=== PATIENT | male | born 1955 | race Caucasian/White ===

== ENCOUNTER 2016-08-08 06:44 | Day surgery (SDC) | payer OTHER ==
[~2016-08-08 06:44] MED LIST: Buffered Lidocaine 0.9% SYRIN* 5 ML/SYR SYRINGE INTRADERM ONE
[2016-08-08] MEDS ORDERED: Midazolam* 1 MG/ML 2 ML VIAL (2 MG) ONE ×2 (08:16→08:32)
[2016-08-08 09:19] VITALS: BP 122/79
--- NOTE | 2016-08-08 09:45 | OP ---
DATE OF OPERATION: 08/08/2016 - [facility] DATE OF : 1955. SURGEON: Matias Scanlon M.D. PREOPERATIVE DIAGNOSIS: Cataract left eye. POSTOPERATIVE DIAGNOSIS: Cataract left eye. OPERATIVE PROCEDURE: Phacoemulsification left eye with IOL. DESCRIPTION OF PROCEDURE: The patient was brought to the operating room after being given 1/2% Alcaine with epinephrine drops in the preoperative area. The eye was prepped and draped in the usual sterile fashion. Sterile drape and eyelid speculum were placed. Again, topical 1/2% Alcaine with epinephrine was given. A paracentesis incision was made at the 3 o'clock position with the No.75 blade. Clear cornea incision 2.2 x 2.2-mm was created at the 6 o'clock position starting at the anterior limbus using the 2.2-mm keratome. The anterior chamber was irrigated with 0.4 mL of 1% non-preservative intracameral lidocaine and filled with DisCoVisc. A capsulorrhexis was completed using the cystotome and the Utrata forceps. Hydrodissection was performed with balanced salt solution. The lens nucleus was removed with the Phacoemulsification handpiece without incident. Cortex was removed with the irrigation-aspiration handpiece. The capsular bag was re-inflated using DisCoVisc and an [id number] implant was inserted with the shooter. The irrigation-aspiration handpiece was used to remove all residual DisCoVisc. The eye was refilled with balanced salt solution and the wound checked and found to be watertight. Topical Maxitrol drops were given. [id number]/[facility] #: [id number] [facility]
[2016-08-08] MEDS ORDERED: Lidocaine 1% MPF* 2 ML VIAL ONE (13:52)
[2016-08-08] MEDS ORDERED: Buffered Lidocaine 0.9% SYRIN* 5 ML/SYR SYRINGE ONE (13:52)
[2016-08-08] MEDS ORDERED: Cyclopentolate 1% OPTH.SOL* 2 ML BTL ONE (13:52)
[2016-08-08] MEDS ORDERED: Povidone Iodine 5% OPTH* 30 ML BTL ONE (13:52)
[2016-08-08] MEDS ORDERED: Neomycin/Polymy/Dex OPTH.SUSP* MAXITROL 0.1% 5 ML ONE (13:52)
[2016-08-08] MEDS ORDERED: Proparacaine 0.5% OPHTH.SOL* 15 ML BTL ONE (13:52)
[2016-08-08] MEDS ORDERED: acetaZOLAMIDE TAB* 250 MG ONE (13:52)
[2016-08-08] MEDS ORDERED: Phenylephrine 2.5% OPTH.SOL* 2 ML BTL ONE (13:52)
[2016-08-08] MEDS ORDERED: Lidocaine 1% MPF wEPI 200,000* 30 ML SDV ONE (13:52)
[2016-08-08] MEDS ORDERED: Flurbiprofen 0.03% OPTH.SOL* 2.5 ML BTL ONE (13:52)
== END 2016-08-08 09:12 | disposition home or self-care (01) ==
LOC: OREAST 06:44
PROVIDERS: ATTEND Specialist
DX: H25.812 Combined forms of age-related cataract, left eye (principal); I10 Essential (primary) hypertension; E78.00 Pure hypercholesterolemia, unspecified
CPT/HCPCS: A9270-GY; J2001; J2250; V2788

== ENCOUNTER 2016-08-15 09:49 | Day surgery (SDC) | payer OTHER ==
[~2016-08-15 09:49] MED LIST changes: +Acetaminophen TAB* 325 MG PO PRN
[2016-08-15] MEDS ORDERED: Midazolam* 1 MG/ML 2 ML VIAL (2 MG) ONE (12:50)
[2016-08-15] MEDS ORDERED: fentaNYL* 50 MCG/ML 2 ML VIAL (100 MCG VIAL) ONE (12:50)
[2016-08-15 13:37] VITALS: BP 122/77
[2016-08-15] MEDS ORDERED: Flurbiprofen 0.03% OPTH.SOL* 2.5 ML BTL ONE (13:57)
[2016-08-15] MEDS ORDERED: Lidocaine 1% MPF* 2 ML VIAL ONE (13:57)
[2016-08-15] MEDS ORDERED: Neomycin/Polymy/Dex OPTH.SUSP* MAXITROL 0.1% 5 ML ONE (13:57)
[2016-08-15] MEDS ORDERED: Cyclopentolate 1% OPTH.SOL* 2 ML BTL ONE (13:57)
[2016-08-15] MEDS ORDERED: Proparacaine 0.5% OPHTH.SOL* 15 ML BTL ONE (13:57)
[2016-08-15] MEDS ORDERED: acetaZOLAMIDE TAB* 250 MG ONE (13:57)
[2016-08-15] MEDS ORDERED: Povidone Iodine 5% OPTH* 30 ML BTL ONE (13:57)
[2016-08-15] MEDS ORDERED: Buffered Lidocaine 0.9% SYRIN* 5 ML/SYR SYRINGE ONE (13:57)
[2016-08-15] MEDS ORDERED: Lidocaine 1% MPF wEPI 200,000* 30 ML SDV ONE (13:57)
[2016-08-15] MEDS ORDERED: Phenylephrine 2.5% OPTH.SOL* 2 ML BTL ONE (13:57)
--- NOTE | 2016-08-16 08:57 | OP ---
DATE OF OPERATION: 08/15/16 - [facility] DATE OF : [birth year] SURGEON: Matias Scanlon M.D. PREOPERATIVE DIAGNOSIS: Cataract, right eye. POSTOPERATIVE DIAGNOSIS: Cataract, right eye. OPERATIVE PROCEDURE: Phacoemulsification right eye with IOL. DESCRIPTION OF PROCEDURE: The patient was brought to the operating room after being given 1/2% Alcaine with epinephrine drops in the preoperative area. The eye was prepped and draped in the usual sterile fashion. Sterile drape and eyelid speculum were placed. Again, topical 1/2% Alcaine with epinephrine was given. A paracentesis incision was made at the 9 o'clock position with the No.75 blade. Clear cornea incision 2.2 x 2.2-mm was created at the 12 o'clock position starting at the anterior limbus using the 2.2-mm keratome. The anterior chamber was irrigated with 0.4 mL of 1% non-preservative intracameral lidocaine and filled with DisCoVisc. A capsulorrhexis was completed using the cystotome and the Utrata forceps. Hydrodissection was performed with balanced salt solution. The lens nucleus was removed with the Phacoemulsification handpiece without incident. Cortex was removed with the irrigation-aspiration handpiece. The capsular bag was re-inflated using DisCoVisc and an [id number] implant was inserted with the shooter. Of note, at the beginning of surgery, I noticed 2'o clock areas of zonules were missing inferiorly. The surgery went smoothly without incident and the lens was well positioned at the end of the surgery. at 2 o'clock was a problem and necessitated a capsular retention ring. The irrigation-aspiration handpiece was used to remove all residual DisCoVisc. The eye was refilled with balanced salt solution and the wound checked and found to be watertight. Topical Maxitrol drops were given. [id number]/[facility] #: [id number] [facility]
== END 2016-08-15 13:46 | disposition home or self-care (01) ==
LOC: OREAST 09:49
PROVIDERS: ATTEND Specialist
DX: H25.811 Combined forms of age-related cataract, right eye (principal); I10 Essential (primary) hypertension; E78.5 Hyperlipidemia, unspecified
CPT/HCPCS: A9270-GY; J2001; J2250; J3010; V2788

== ENCOUNTER 2017-03-19 06:13 | Observation (INO) | payer OTHER ==
[~2017-03-19 06:13] MED LIST changes: -Acetaminophen TAB* 325 MG PO PRN; +Dexamethasone IV* 4 MG/ML 1 ML (4 MG) IV SLOW PU ONE; +Famotidine IV* 10 MG/ML 2 ML (20 mg) IV ONE
[2017-03-19] MEDS ORDERED: Dexamethasone IV* 4 MG/ML 1 ML (4 MG) ONE (06:49)
[2017-03-19] MEDS ORDERED: Famotidine IV* 10 MG/ML 2 ML (20 mg) ONE (06:49)
[2017-03-19] MEDS ORDERED: Lidocaine 1% MPF wEPI 200,000* 30 ML SDV ONE (07:21)
[2017-03-19] MEDS ORDERED: Thrombin 5,000 UNITS* 1 APPLIC KIT - topical use - TOPICAL ONE (07:22)
[2017-03-19] MEDS ORDERED: Bacitracin IV* 50,000 UNITS INJ ONE (07:22)
[2017-03-19] MEDS ORDERED: Mivacurium Chloride* 20 MG/10 ML VIAL IV ONE (07:34)
[2017-03-19] MEDS ORDERED: Propofol* 10 MG/ML 20 ML BTL IV PUSH ONE ×2 (07:34→08:57)
[2017-03-19] MEDS ORDERED: Midazolam* 1 MG/ML 2 ML VIAL (2 MG) ONE (07:35)
[2017-03-19] MEDS ORDERED: Lidocaine 2% PF * 5 ML VIAL ONE (07:35)
[2017-03-19] MEDS ORDERED: fentaNYL* 50 MCG/ML 5 ML VIAL (250 MCG VIAL) ONE (07:38)
[2017-03-19] MEDS ORDERED: EPHEDrine (Pressors)* 50 MG/ML VIAL ONE (08:12)
[2017-03-19] MEDS ORDERED: Phenylephrine INJ* 10 MG/ML 1 ML VIAL (10 MG) ONE (08:15)
[2017-03-19] MEDS ORDERED: HYDROcodone/ACETAMIN 5-325 MG* 1 TAB PO PRN (08:36)
[2017-03-19] MEDS ORDERED: oxyCODONE/Acetamin 5/325 MG* TAB PO PRN (08:36)
[2017-03-19] MEDS ORDERED: fentaNYL* 50 MCG/ML 2 ML VIAL (100 MCG VIAL) IV PRN (08:36)
[2017-03-19] MEDS ORDERED: Naloxone* 0.4 MG/ML 1 ML VIAL IV PRN (08:36)
[2017-03-19] MEDS ORDERED: PROCHLORPERAZINE INJ 5 MG/ML 2 ML VIAL IV PRN (08:36)
[2017-03-19] MEDS ORDERED: Ondansetron INJ* 2 MG/ML VIAL ONE (08:47)
[2017-03-19] MEDS ORDERED: Magnesium Hydroxide LIQ* 30 ML UDC PO PRN (09:09)
[2017-03-19] MEDS ORDERED: Ondansetron INJ* 2 MG/ML VIAL IV PRN (09:09)
[2017-03-19] MEDS ORDERED: oxyCODONE/Acetamin 5/325 MG* TAB ONE (09:45)
--- NOTE | 2017-03-19 11:34 | RAD ---
INDICATION: Intraoperative radiograph during posterior cervical discectomy at C7-T1 COMPARISON: None. TECHNIQUE: A single lateral crosstable image was obtained. FINDINGS: Only the cervical spine from C1 to the upper abdomen C4 is clearly visible. The cervical spine is obscured from the mid-level C4 level downward. There is a surgical instrument pointing approximately at the C5 level although this area the cervical spine is not directly visible. IMPRESSION: The cervical spine is not visible from the superior endplate of C4 downward. A surgical instrument is pointing approximately at the C4/C5 level, but this is an estimation.
[2017-03-19] MEDS: HYDROcodone/ACETAMIN 5-325 MG* 1 TAB PO PRN ×2 (13:31→20:51)
[2017-03-19] MEDS ORDERED: Zolpidem TAB* 10 MG PO PRN (21:00)
[2017-03-20 07:44] VITALS: BP 138/68
--- NOTE | 2017-03-22 22:29 | DS ---
DISCHARGE SUMMARY: DATE OF ADMISSION: 03/19/17 DATE OF DISCHARGE: 03/20/17 ATTENDING PHYSICIAN: Dr. Nolasco.* (DICTATED BY JULIET DURANT) DISCHARGE DIAGNOSIS: Cervical disk disease. SPECIAL PROCEDURES: Posterior cervical foraminotomy, C7-T1 on the left. HOSPITAL COURSE: This 61-year-old male was seen in the office with cervical radiculopathy that had failed to improve with multiple conservative treatments. Proposed posterior cervical surgery was discussed with the patient and he decided to proceed with this option. On the day of admission, he was taken to surgery where under general anesthesia, a posterior cervical foraminotomy at C7- T1 on the left operation was carried out. Postoperatively, he was feeling well and preoperative symptoms were improved. He was ambulating independently. He was eating, drinking, and voiding without difficulty. On the first postoperative day, the wound drain was discontinued and the patient was discharged home to the care of his family. Pain was well-controlled at this time with oral pain medications. DISCHARGE INSTRUCTIONS: Wound care and activity level were discussed with the patient and provided. FOLLOW UP: In office in 2 weeks. DISCHARGE MEDICATIONS: None. JULIET DURANT [id number]/[facility] #: [id number] [facility]
--- NOTE | 2017-03-28 13:07 | OP ---
OPERATIVE REPORT: DATE OF OPERATION: 03/19/17 DATE OF : 53 SURGEON: Diego Nolasco MD ANESTHESIA: General. PRE-OP DIAGNOSIS: Herniated nucleus pulposus, C7-T1 on the left. POST-OP DIAGNOSIS: Cervical spondylosis C7-T1 on the left. OPERATIVE PROCEDURE: Posterior cervical partial hemilaminectomy C7-T1 on the left with foraminotomy C7-T1 on left with microdissection. DESCRIPTION OF PROCEDURE: After satisfactory general anesthesia was obtained, the patient was placed on the operating table in the prone position with the chest supported on chest rolls and the head ma intained with slight neck flexion utilizing the Carmen headrest. The posterior cervical region was then clipped, prepped and draped in a posterior cervical manner and skin incision outlined from C7-T 1. This incision was infiltrated with 1% Xylocaine with epinephrine after which it was turned down s harply to the level of the cervical fascia. The fascia was divided along the spinous processes from C6 to T1, and the paraspinal musculature stripped away from these posterior elements using the perios teal elevator and monopolar cautery. An intraoperative x-ray was obtained verifying proper interspac e localization after which a foraminotomy was carried out at the C7-T1 level by removing the inferior aspect of C7 and the superior aspect of T1 as well as the medial aspect of the facet complex utilizi ng a combination of the [place] drill and Kerrison rongeurs. Ligamentum flavum was removed with th e Kerrison. The C8 nerve root was exposed. At this point in procedure, the operating microscope was brought into the field and the remainder of the procedure was done under microscopic visualization. Utilizing microdissection, epidural venous structures were coagulated and divided. Projecting into the axillary region of the exposure was a spur which was adjacent to the C8 nerve root. This was melo te firm and there was no soft disk fragment noted. The foraminotomy was extended into the C8 nerve r oot and was noted to be free in its course. It was felt that a satisfactory decompression had been a chieved. After assuring adequate hemostasis, the wound was thoroughly irrigated after which a drain was placed in the epidural space and tunneled out towards the left side. The fascia was then reappro ximated with 0 Vicryl suture, the subcutaneous tissue was closed with 3-0 Vicryl suture and the skin closed with skin clips. The estimated blood loss was less than 50 cc and the final sponge, padding, and needle counts were correct. The patient was taken to the recovery room, extubated and in stable c ondition. [id number]/[facility] #: [id number]
== END 2017-03-20 09:40 | disposition home or self-care (01) ==
LOC: OR 06:13 → SSU 09:09
PROVIDERS: ADMIT Neurological Surgery; ATTEND Neurological Surgery
DX: M50.23 Other cervical disc displacement, cervicothoracic region (principal); M47.9 Spondylosis, unspecified
CPT/HCPCS: 72020; 94760; 96374; 96375; A9270-GY; G0378; J1100; J2001; J2250; J2405; J2704; J3010